=== PATIENT | female | born 1995 | race Caucasian/White ===

== ENCOUNTER 2021-04-23 10:41 | Emergency (ER) | payer OTHER ==
[~2021-04-23] VITALS: Ht 160 cm; Wt 83.5 kg
[2021-04-23] MEDS ORDERED: PARA1IUD IU (10:51)
--- NOTE | 2021-04-23 11:17 | REP ---
INDICATION: FALL COMPARISON: None. TECHNIQUE: Four views left 1st toe. FINDINGS: There is a mildly displaced fracture of the distal aspect of the 1st proximal phalanx. No other acute fracture or dislocation is seen. IMPRESSION: Mildly displaced fracture distal aspect of 1st proximal phalanx. <Electronically signed by Mat Skinner > 04/23/21 [id number]
[2021-04-23] MEDS ORDERED: HYDR-3713 PO (12:46)
[2021-04-23 13:50] VITALS: BP 120/68
== END 2021-04-23 13:52 | disposition home or self-care (01) ==
LOC: M ED 10:41
DX: S92.412A Displaced fracture of proximal phalanx of left great toe, initial encounter for closed fracture (principal); W10.8XXA Fall (on) (from) other stairs and steps, initial encounter; Y92.009 Unspecified place in unspecified non-institutional (private) residence as the place of occurrence of the external cause; Y93.9 Activity, unspecified; Y99.9 Unspecified external cause status

== ENCOUNTER 2022-01-25 15:54 | Outpatient (CLI) | payer OTHER ==
[~2022-01-25] VITALS: Ht 160 cm; Wt 90.2 kg
[~2022-01-25 15:54] MED LIST: HYDR-3713 PO; PARA1IUD IU
[2022-01-25 16:09] VITALS: BP 113/64
== END 2022-01-25 16:50 | disposition home or self-care (01) ==
LOC: M LDO 15:54
PROVIDERS: ATTEND Obstetrics & Gynecology
DX: O36.8120 Decreased fetal movements, second trimester, not applicable or unspecified (principal); Z3A.27 27 weeks gestation of pregnancy; O32.1XX0 Maternal care for breech presentation, not applicable or unspecified
CPT/HCPCS: 59025; 76815; G0463

== ENCOUNTER 2022-04-30 03:52 | Inpatient (IN) | payer OTHER ==
[~2022-04-30] VITALS: Ht 160 cm; Wt 101.2 kg
[2022-04-30 04:56] LABS: HEMATOCRIT 33.5 % (36.0-47.0); HEMOGLOBIN 10.3 g/dl (12.0-15.5); MEAN CORPUSCULAR HEMOGLOBIN 23.6 pg (27.0-33.0); MEAN CORPUSCULAR HGB CONC 30.7 g/dl (32.0-36.5); MEAN CORPUSCULAR VOLUME 76.7 fl (80.0-96.0); PLATELET COUNT, AUTOMATED 347 10^3/uL (150-450); RED BLOOD COUNT 4.37 10^6/uL (4.00-5.40); WHITE BLOOD COUNT 11.6 10^3/uL (4.0-10.0)
[2022-04-30] MEDS ORDERED: OXYTOCIN INJ 10 UNITS/ML VIAL (J2590) As Ordered ONE (05:08)
[2022-04-30] MEDS ORDERED: OXYTOCIN 30 UNITS IN 0.9% NaCl 500ML IV BAG (J2590) As Ordered ONE (05:08)
[2022-04-30 05:27] VITALS: BP 145/85
[2022-04-30] MEDS ORDERED: OXYTOCIN DRIP 30 UNITS in IV 1 EA IV PRN (05:30)
[2022-04-30] MEDS ORDERED: OXYTOCIN DRIP 30 UNITS in IV 1 EA IV ONE ×2 (05:30→05:35)
[2022-04-30] MEDS ORDERED: TRANEXAMIC ACID INJection 1,000 MG in NS 100 ML IV PRN (05:30)
[2022-04-30] MEDS ORDERED: LACTATED RINGER'S 1000 ML IV ONE (05:30)
[2022-04-30] MEDS ORDERED: OXYTOCIN INJ 10 UNITS/ML VIAL (J2590) IV PRN (05:30)
[2022-04-30] MEDS ORDERED: LR 1,000 ML IV SCH ×2 (05:30→05:35)
[2022-04-30] MEDS ORDERED: METHYLERGONOVINE MALEATE 0.2 MG/ML VIAL (J2210) IM PRN ×2 (05:30→05:35)
[2022-04-30 05:31] LABS: CORD GAS ABE V -1.9; CORD GAS HCO3 V 21.4 MEQ/L; CORD GAS O2 SAT V 47.9 %; CORD GAS PCO2 V 32.6 mmHg; CORD GAS PH V 7.435 UNITS; CORD GAS PO2 V 19.1 mmHg; CORD GAS SBC V 21.7 MEQ/L; CORD GAS TCO2 V 22.4 MEQ/L
[2022-04-30 05:33] LABS: CORD GAS ABE A 0.2; CORD GAS HCO3 A 24.9 MEQ/L; CORD GAS O2 SAT A 30.6 %; CORD GAS PCO2 A 40.5 mmHg; CORD GAS PH A 7.406 UNITS; CORD GAS TCO2 A 26.1 MEQ/L
[2022-04-30] MEDS ORDERED: OXYTOCIN INJ 10 UNITS/ML VIAL (J2590) IV ONE (05:35)
[2022-04-30] MEDS ORDERED: DOCUSATE SODIUM 100MG CAPSULE PO PRN (05:35)
[2022-04-30] MEDS ORDERED: ACETAMINOPHEN TAB 650MG DOSE (2X325MG) PO PRN (05:35)
[2022-04-30] MEDS ORDERED: METHYLERGONOVINE MALEATE 0.2 MG TAB PO PRN (05:35)
[2022-04-30] MEDS ORDERED: ACETAMINOPHEN 500 MG TAB PO PRN (05:35)
[2022-04-30] MEDS ORDERED: RHOGAM 300 MCG (1500 IU) INJ (J2790) IM SCH (05:35)
[2022-04-30] MEDS ORDERED: MOM 30ML SUSPENSION UDC PO PRN (05:35)
[2022-04-30] MEDS ORDERED: ANUSOL HC CREAM 30GM TOP PRN (05:35)
[2022-04-30] MEDS ORDERED: DIBUCAINE 1% OINTMENT 30GM TOP PRN (05:35)
[2022-04-30] MEDS ORDERED: OXYTOCIN DRIP 30 UNITS in IV 1 EA IV SCH (05:35)
[2022-04-30 05:42] VITALS: BP 143/85
[2022-04-30] MEDS ORDERED: ZOLO25TA PO (06:02)
[2022-04-30] MEDS: PRENATAL VITAMINS CHEWABLE TABLET PO SCH (08:20)
[2022-04-30] MEDS: IBUPROFEN 600MG TAB PO PRN ×2 (08:21→19:22)
[2022-04-30 11:12] VITALS: BP 116/59
[2022-04-30 18:00] VITALS: BP 119/64
[2022-04-30] MEDS ORDERED: SERTRALINE HCL 25 MG TABLET PO SCH (21:00)
[2022-05-01 06:00] VITALS: BP 116/67
[2022-05-01] MEDS ORDERED: ACET1TAB55 PO (06:28)
[2022-05-01] MEDS ORDERED: IBUP-1022 PO (06:28)
[2022-05-01] MEDS ORDERED: COLA100C5 PO (06:28)
[2022-05-01 08:04] LABS: HEMATOCRIT 32.1 % (36.0-47.0); HEMOGLOBIN 9.7 g/dl (12.0-15.5); MEAN CORPUSCULAR HEMOGLOBIN 23.5 pg (27.0-33.0); MEAN CORPUSCULAR HGB CONC 30.2 g/dl (32.0-36.5); MEAN CORPUSCULAR VOLUME 77.7 fl (80.0-96.0); PLATELET COUNT, AUTOMATED 282 10^3/uL (150-450); RED BLOOD COUNT 4.13 10^6/uL (4.00-5.40); WHITE BLOOD COUNT 9.5 10^3/uL (4.0-10.0)
[2022-05-01] MEDS: PRENATAL VITAMINS CHEWABLE TABLET PO SCH (10:01)
[2022-05-01] MEDS: IBUPROFEN 600MG TAB PO PRN (10:37)
[2022-05-02] MEDS ORDERED: MEASLES,MUMPS,RUBELLA VACCINE INJ (MMR-II) (90707) SC.IMMUN ONE (09:00)
== END 2022-05-01 11:30 | disposition home or self-care (01) | DRG 807 ==
LOC: M LDO 03:52 → M LDI 04:19 → M OBS 07:45
PROVIDERS: ADMIT Obstetrics & Gynecology; ATTEND Obstetrics & Gynecology
PROC: 10E0XZZ Delivery of Products of Conception, External Approach (ICD-10-PCS; principal; 2022-04-30)
DX: O48.0 Post-term pregnancy (principal); Z37.0 Single live birth; Z3A.41 41 weeks gestation of pregnancy; O69.81X0 Labor and delivery complicated by cord around neck, without compression, not applicable or unspecified

== ENCOUNTER 2023-06-20 19:07 | Emergency (ER) | payer OTHER ==
[~2023-06-20] VITALS: Ht 160 cm; Wt 93.4 kg
[~2023-06-20 19:07] MED LIST changes: +ACET1TAB55 PO; +COLA100C5 PO; +IBUP-1022 PO; +ZOLO25TA PO
[2023-06-20 19:09] VITALS: TEMP 98.3
[2023-06-20 20:30] LABS: BASO % 0.5 % (0.0-1.0); EOS # 0.1 10^3/uL (0.0-0.5); EOS % 1.7 % (0.0-3.0); HEMATOCRIT 36.8 % (36.0-47.0); HEMOGLOBIN 11.4 g/dl (12.0-15.5); LYMPH # 2.3 10^3/uL (1.5-5.0); LYMPH % 30.8 % (24.0-44.0); MEAN CORPUSCULAR HEMOGLOBIN 24.6 pg (27.0-33.0); MEAN CORPUSCULAR VOLUME 79.5 fl (80.0-96.0); MONO # 0.6 10^3/uL (0.0-0.8); MONO % 8.1 % (2.0-8.0); NEUTROPHILS # 4.4 10^3/uL (1.5-8.5); NEUTROPHILS % 58.6 % (36.0-66.0); PLATELET COUNT, AUTOMATED 327 10^3/uL (150-450); RED BLOOD COUNT 4.63 10^6/uL (4.00-5.40); WHITE BLOOD COUNT 7.6 10^3/uL (4.0-10.0)
[2023-06-20 20:42] LABS: APPEARANCE, URINE HAZY (CLEAR); BACTERIA, URINE AUTO NEGATIVE (NEGATIVE); BILIRUBIN, URINE AUTO NEGATIVE (NEGATIVE); BLOOD, URINE BLOOD 3+ (NEGATIVE); COLOR, URINE YELLOW (YELLOW); GLUCOSE, URINE (UA) AUTO NEGATIVE (NEGATIVE); KETONE, URINE AUTO NEGATIVE (NEGATIVE); LEUKOCYTE ESTERASE, URINE AUTO 1+ (NEGATIVE); MUCUS, URINE SMALL (NEGATIVE); NITRITE, URINE AUTO NEGATIVE (NEGATIVE); PROTEIN, URINE AUTO 1+ mg/dL (NEGATIVE); RBC, URINE AUTO 18 /HPF (0-3); SPECIFIC GRAVITY URINE AUTO 1.032 (1.002-1.035); SQUAMOUS EPITHELIAL CELL UR AU 5 /HPF (0-6); UROBILINOGEN, URINE AUTO 0.2 mg/dL (0.0-2.0); WBC, URINE AUTO 7 /HPF (0-3)
[2023-06-20 23:13] VITALS: BP 117/71; O2SAT 100
== END 2023-06-20 23:15 | disposition home or self-care (01) ==
LOC: M ED 19:07
DX: O20.9 Hemorrhage in early pregnancy, unspecified (principal); Z30.432 Encounter for removal of intrauterine contraceptive device; Z79.899 Other long term (current) drug therapy; Z79.1 Long term (current) use of non-steroidal anti-inflammatories (NSAID)

== ENCOUNTER → 2023-06-22 | Outpatient (CLI) | payer OTHER | LOC: M LAB 13:30 | PROVIDERS: ATTEND Emergency Medicine | DX: Z34.00 Encounter for supervision of normal first pregnancy, unspecified trimester (principal) ==

== ENCOUNTER → 2023-07-06 | Outpatient (CLI) | payer OTHER | LOC: M PLALAB 12:44 | PROVIDERS: ATTEND Nurse Practitioner Family | DX: Z30.430 Encounter for insertion of intrauterine contraceptive device (principal) ==